=== PATIENT | male | born 1945 | race Caucasian/White ===

== ENCOUNTER 2019-12-02 13:33 | Emergency (ER) | payer MEDICARE, BC ==
[~2019-12-02] VITALS: Ht 180.3 cm; Wt 88.6 kg
[2019-12-02] MEDS ORDERED: ELIQUIS 2.5 PO (13:58)
[2019-12-02] MEDS ORDERED: COZAAR 25MG25 MG/TAB PO (13:59)
[2019-12-02] MEDS ORDERED: PROTONIX 40MG T40 MG PO (13:59)
[2019-12-02] MEDS ORDERED: ZYLOPRIM 100MG100 MG PO (14:00)
[2019-12-02] MEDS ORDERED: CELEXA40 MG PO (14:00)
[2019-12-02] MEDS ORDERED: CAMPRAL333 M1 PO (14:01)
[2019-12-02] MEDS ORDERED: NEURONTIN400 MG/CAP PO (14:02)
[2019-12-02 15:59] VITALS: BP 138/80; PULSE 60; TEMP 98.2
== END 2019-12-02 15:00 | disposition home or self-care (01) ==
LOC: COL.ER 13:33
DX: S00.83XA Contusion of other part of head, initial encounter (principal); R40.2412 Glasgow coma scale score 13-15, at arrival to emergency department; G89.29 Other chronic pain; M54.9 Dorsalgia, unspecified; Z79.01 Long term (current) use of anticoagulants; W01.0XXA Fall on same level from slipping, tripping and stumbling without subsequent striking against object, initial encounter